=== PATIENT | female | born 1940 | race Caucasian/White ===

== ENCOUNTER 2017-02-27 21:45 | Emergency (ER) | payer MEDICARE, BC ==
[2017-02-27 22:04] VITALS: BP 159/84
[2017-02-27] MEDS ORDERED: Acetaminophen/oxyCODONE 325-5 MG Tab PO ONE (22:46)
--- NOTE | 2017-02-27 22:59 | EDM.PDOC ---
ED HPI GENERAL MEDICAL PROBLEM - General Chief Complaint: Upper Extremity Injury/Pain Stated Complaint: BROKE SHOULDER OR ARM Time Seen by Provider: 02/27/17 21:57 Source of Information: Reports: Patient, Family History Limitations: Reports: No Limitations - History of Present Illness INITIAL COMMENTS - FREE TEXT/NARRATIVE: This patient fell at home and complains of pain to the mid upper arm. She is unable to move the arm. She mentioned she had a wrist fracture and the past recently Right Upper Arm Pain Score (Numeric/FACES): 10 - Related Data Allergies Allergy/AdvReac Type Severity Reaction Status Date / Time gemifloxacin [From Factive] Allergy Rash Verified 02/27/17 22:08 Home Meds: Home Meds *Antidepressant 1 tab PO DAILY 02/27/17 [History] Azithromycin [Zithromax] 250 mg PO DAILY 02/27/17 [History] Carbidopa/Levodopa [Carbidopa-Levo 25-100 MG ODT] 2 tab PO TID 02/27/17 [History ] Cholecalciferol (Vitamin D3) [Vitamin D3] 2,000 unit PO DAILY 02/27/17 [History] Levothyroxine Sodium [Synthroid] 75 mcg PO ACBREAKFAST 02/27/17 [History] Zolpidem [Ambien] 5 mg PO BEDTIME 02/27/17 [History] Past Medical History HEENT History: Reports: Allergic Rhinitis, Impaired Vision Respiratory History: Reports: Asthma Gastrointestinal History: Reports: Chronic Constipation Genitourinary History: Reports: Urinary Incontinence [employer] History: Reports: Musculoskeletal History: Reports: Arthritis, Fracture Neurological History: Reports: Parkinson's, Other (See Below) (Progressive supranuclear palsy) Psychiatric History: Reports: Depression Endocrine/Metabolic History: Reports: Hypothyroidism - Infectious Disease History Infectious Disease History: Reports: Chicken Pox, Influenza, Measles, Mumps, Shingles - Past Surgical History GI Surgical History: Reports: Appendectomy, Cholecystectomy, Colonoscopy Endocrine Surgical History: Reports: Parathyroidectomy Social & Family History - Tobacco Use Smoking Status *Q: Never Smoker - Caffeine Use Caffeine Use: Reports: Soda - Recreational Drug Use Recreational Drug Use: No Review of Systems - Review of Systems Review Of Systems: ROS reveals no pertinent complaints other than HPI. (She denies other injuries) ED EXAM, GENERAL - Physical Exam Exam: See Below Exam Limited By: No Limitations General Appearance: Alert, Moderate Distress, Other (Chronically ill appearing.) Eye Exam: Bilateral Eye: Normal Inspection Respiratory/Chest: Lungs Clear Cardiovascular: Regular Rate, Rhythm Peripheral Pulses: 2+: Radial (L), Radial (R) GI/Abdominal: Non-Tender Extremities: Other (There is some swelling to the right shoulder consistent with a humeral head fracture area and shoulder is nontender she is however tender over but the midshaft of the humerus.) Neurological: Alert, Oriented Course - Vital Signs Last Recorded V/S: Last Vital Signs Temp 36.0 C 02/27/17 21:50 Pulse 79 02/27/17 21:50 Resp 20 02/27/17 21:50 BP 159/84 H 02/27/17 21:50 Pulse Ox 97 02/27/17 21:50 - Orders/Labs/Meds Orders: Active Orders 24 hr Category Date Time Status Humerus Rt [CR] Stat Exams 02/27/17 21:58 Taken Shoulder Comp Rt [CR] Stat Exams 02/27/17 21:57 Taken Meds: Medications Discontinued Medications Generic Name Dose Route Start Last Admin Trade Name Jazmin PRN Reason Stop Dose Admin Oxycodone/Acetaminophen 1 tab 02/27/17 22:46 Percocet 325-5 Mg PO 02/27/17 22:47 ONETIME ONE - Radiology Interpretation Free Text/Narrative:: There is impacted humeral head fracture. Humerus otherwise is normal - Re-Assessments/Exams Free Text/Narrative Re-Assessment/Exam: 02/27/17 22:51 Patient received Percocet 5/325 one tablet orally precautions were discussed. The right arm was placed in a shoulder immobilizer. She and her are leaving town to go back to [place] in just a few days and they'll follow-up with an orthopedic surgeon there. They have a copy of the x-ray on disc Departure - Departure Time of Disposition: 22:52 Disposition: Home, Self-Care 01 Condition: Fair Clinical Impression: Humeral head fracture - Discharge Information Referrals: PCP,None [Primary Care Provider] - Additional Instructions: Apply ice off and on for the next 12-24 hours. Keep the shoulder in the shoulder immobilizer for protection. You may remove it at any time as needed for bathing and so forth. For pain you may use Percocet 5/325 one or 2 tablets every 4 hours. This medication can cause sedation that could lead to falls or impair driving and so forth. She should use the minimum dose that's effective in controlling the pain. Each tablet of Percocet contains the same amount of acetaminophen as one regular Tylenol tablet. If she takes some extra Tylenol just remember that a Percocet tablet counts as a Tylenol so observe the package instructions for the amount she can take in 24 hours. See your orthopedic surgeon early next week. Return to the ER at any time if needed - My Orders Last 24 Hours: My Active Orders 02/27/17 21:57 Shoulder Comp Rt [CR] Stat 02/27/17 21:58 Humerus Rt [CR] Stat - Assessment/Plan Last 24 Hours: My Active Orders 02/27/17 21:57 Shoulder Comp Rt [CR] Stat 02/27/17 21:58 Humerus Rt [CR] Stat
--- NOTE | 2017-02-28 09:02 | CR ---
Shoulder Comp Rt INDICATION: trauma COMPARISON: None FINDINGS: 3 views. Fracture neck of the proximal humerus. Impaction but no significant displacemen t or angulation.
--- NOTE | 2017-02-28 09:04 | CR ---
Humerus Rt INDICATION: trauma COMPARISON: None FINDINGS: 2 views. Fracture neck of the proximal humerus. Impaction but no significant displacement or angulation.
== END 2017-02-27 23:33 | disposition home or self-care (01) ==
LOC: JP.ED 21:45
DX: S42.201A Unspecified fracture of upper end of right humerus, initial encounter for closed fracture (principal); J45.909 Unspecified asthma, uncomplicated; M19.90 Unspecified osteoarthritis, unspecified site; F32.9 Major depressive disorder, single episode, unspecified; E03.9 Hypothyroidism, unspecified; Z90.49 Acquired absence of other specified parts of digestive tract; Z98.890 Other specified postprocedural states; Z79.2 Long term (current) use of antibiotics; Z79.899 Other long term (current) drug therapy; Z88.1 Allergy status to other antibiotic agents; W19.XXXA Unspecified fall, initial encounter; Y92.009 Unspecified place in unspecified non-institutional (private) residence as the place of occurrence of the external cause
CPT/HCPCS: 73030; 73060; 99284; A9270